=== PATIENT | female | born 1970 | race Caucasian/White ===

== ENCOUNTER → 2017-01-14 | Outpatient (CLI) | payer BC ==
--- NOTE | 2017-01-14 09:32 | KCIC ---
PROCEDURE Diagnostic right mammogram. 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 COMPARISON June 19, 2016. FINDINGS Digital diagnostic right mammogram was performed consisting of routine CC and MLO views of the right breast. Retroareolar right breast demonstrates presence of a biopsy clip adjacent to mammographic mass of interest. Mammographic mass of interest is not changed in size to previous study. No dominant suspicious mass, suspicious microcalcifications, or architectural distortion is identified in the right breast. CAD was utilized. Breast parenchyma is heterogeneously dense, which could reduce sensitivity of mammography (tissue density C). IMPRESSION Post biopsy changes of the right breast. No evidence of malignancy. Recommend return to annual screening mammography. It is noted that patient is due for annual screening mammography in June 2017. BIRADS: 2 - Benign Finding(s) Follow Up: In 12 month(s) The images were reviewed with computer-aided detection. Patient information was entered into a reminder system with a target due date for the next mammogram. Statement of the [employer]: Mammography is the most sensitive method for findings small breast cancers, but it does not detect them all and is not a substitute for careful clinical examination. A negative mammogram does not negate a clinically suspicious finding and should not result in a delay in biopsying a clinically suspicious abnormality. Electronically signed by: Chris Aguayo MD (Jan 14, 2017 09:31:25)
== END | disposition home or self-care (01) ==
LOC: KCIC MAMMO 08:43
PROVIDERS: ATTEND Nurse Practitioner
DX: C50.911 Malignant neoplasm of unspecified site of right female breast (principal)
CPT/HCPCS: G0206; 77065

== ENCOUNTER → 2017-07-28 | Outpatient (CLI) | payer BC ==
--- NOTE | 2017-07-28 15:33 | KCIC ---
DATE: 07/28/2017 EXAM: MAMMO CLARISSA SCREENING BILATERAL HISTORY: Screening COMPARISON: 06/19/2016 This study was interpreted with the benefit of Computerized Aided Detection (CAD). FINDINGS: Breast Density: HETERO The breast parenchyma Is heterogeneiously dense, which could reduce sensitivity of mammography. Breast parenchyma level C. There is a density centrally in the right breast best demonstrated on the cc view similar to the previous venous exam. A biopsy clip is noted at this level. In the periareolar position of the left breast, just above the plane of the nipple there is a well-defined mass. This is best demonstrated on the clarissa images. Targeted ultrasound is suggested. It probably reflects a cyst. IMPRESSION: Well-defined mass in the periareolar position of the left breast. Targeted ultrasound advised. BI-RADS CATEGORY: 0 INCOMPLETE: NEED ADDITIONAL IMAGING EVAULATION AND/OR PRIOR MAMMOGRAMS FOR COMPARISON RECOMMENDED FOLLOW-UP: ADD ADDITIONAL IMAGING PQRS compliance statement: Patient information was entered into a reminder system with a target due date soon for the next mammogram. Mammography is a sensitive method for finding small breast cancers, but it does not detect them all and is not a substitute for careful clinical examination. A negative mammogram does not negate a clinically suspicious finding and should not result in delay in biopsying a clinically suspicious abnormality. "Our facility is accredited by the [employer] Mammography Program."
== END | disposition home or self-care (01) ==
LOC: KCIC MAMMO 14:11
PROVIDERS: ATTEND Nurse Practitioner Family
DX: Z12.31 Encounter for screening mammogram for malignant neoplasm of breast (principal); N63.20 Unspecified lump in the left breast, unspecified quadrant
CPT/HCPCS: 77063; G0202; 77067

== ENCOUNTER → 2017-08-01 | Outpatient (CLI) | payer BC ==
--- NOTE | 2017-08-01 13:55 | RAD ---
LEFT BREAST SONOGRAPHY Clinical indications: Further evaluation of nodule at the 12:00 position left breast seen on screening mammogram dated July 28, 2017. Findings: High-resolution sonography of the 12:00 position of the left breast was performed. In the retroareolar region, a 13 mm simple cyst is seen. This is located 1 cm from the nipple. IMPRESSION: Mammographic nodule corresponds to a simple cyst of the left breast. Recommend routine screening mammography in one year. BI-RADS Category 2 benign finding. The patient information was entered into the data reminder system with a target due date for the next mammogram of July 29, 2018.
== END | disposition home or self-care (01) ==
LOC: KCIC US 13:18
PROVIDERS: ATTEND Nurse Practitioner Family
DX: N63.20 Unspecified lump in the left breast, unspecified quadrant (principal)
CPT/HCPCS: 76641

== ENCOUNTER → 2018-02-18 | Outpatient (CLI) | payer BC | END | disposition home or self-care (01) | LOC: KCIC US 12:48 | DX: N60.12 Diffuse cystic mastopathy of left breast (principal); D48.61 Neoplasm of uncertain behavior of right breast; N63.20 Unspecified lump in the left breast, unspecified quadrant | CPT/HCPCS: 76641 ==

== ENCOUNTER → 2019-03-02 | Outpatient (CLI) | payer BC ==
[~2019-03-02] MED LIST: LISI10TA2 PO; NORE1TAB27 PO
--- NOTE | 2019-03-02 09:50 | RAD ---
CLINICAL HISTORY: Elevated LFTs. Osteophytosis COMPARISON: None available. TECHNIQUE: Ultrasound of the upper abdomen was performed. FINDINGS: The liver measures 17.3 cm in length in the right mid clavicular line. The hepatic margin is smooth and the hepatic echogenicity is normal. There are no focal liver lesions. Flow is identified in the hepatic veins and portal veins with normal waveforms. Diffuse cholelithiasis resulting in shadowing of the gallbladder. No obvious pericholecystic fluid is seen. The common bile duct measures 0.2 cm. The spleen is normal in size measuring 7.6 cm in length. The head and body of the pancreas are unremarkable. The tail is obscured by intestinal gas.. The right kidney measures 13.9 cm in bipolar length. No focal renal lesion or hydronephrosis. Normal renal cortical echotexture. The left kidney measures 12.8 cm in bipolar length. No focal renal lesion or hydronephrosis. Normal renal cortical echotexture. Visualized portions of the abdominal aorta and inferior vena cava are unremarkable. There is no free fluid in the upper abdomen. IMPRESSION: 1. Marked cholelithiasis resulting in shadowing of the entire gallbladder. Within these limitations, no obvious pericholecystic fluid or wall thickening is seen. Electronically signed by: Jaden Cooper MD (03/02/2019 9:02 AM) [id number]
== END | disposition home or self-care (01) ==
LOC: US 06:53
PROVIDERS: ATTEND Internal Medicine Hematology & Oncology
DX: K80.20 Calculus of gallbladder without cholecystitis without obstruction (principal)
CPT/HCPCS: 76700

== ENCOUNTER → 2019-11-22 | Outpatient (CLI) | payer BC ==
[2019-03-05 11:45] VITALS: BP 123/74
--- NOTE | 2019-11-22 16:54 | KCIC ---
Bilateral digital screening mammograms with 3-D tomosynthesis: Reason for examination: Routine screening. Comparison is made to previous studies dated back to 05/06/2014. Bilateral mammograms in CC and oblique projections were obtained with 2-D imaging and 3-D tomosynthesis imaging on a Siemens Inspiration unit and reviewed on the workstation. Interpretation was made with the benefit of CAD. The skin and nipples show no abnormalities. No abnormal axillary lymph nodes are seen. The breast parenchyma is heterogeneously dense. (Breast density: Category C.) There are nodular densities posterior laterally at the 9:30 B and 9:00 C positions of the right breast. There are also however small nodular densities located centrally in the 6:00 B position of the left breast and laterally at the 2:30 B position of the left breast. Further evaluation with ultrasound is recommended. There are no other new dominant masses, suspicious calcifications or architectural distortion. Impression: Small nodular densities in the right breast at the 9:00 C and 9:30 B positions and in the left breast at the 2:30 B and 6:00 B positions. Recommend further evaluation with ultrasound. Your patient's mammogram demonstrates that she has dense breast tissue (breast density category C or D), which could hide abnormalities, and if she has other risk factors for breast cancer that have been identified, she might benefit from supplemental screening tests that may be suggested by you as her ordering physician. Dense breast tissue, in and of itself, is a relatively common condition. Therefore, this information is not provided to cause undue concern, but rather to raise your awareness and to promote discussion with your patient regarding the presence of other risk factors, in addition to dense breast tissue. Your patient's mammography results will be sent to her. BI-RAD Category 0: Incomplete. Needs additional imaging evaluation. "Our facility is accredited by the [employer] Mammography Program." This patient's information has been entered into a reminder system for the patient to be notified with the results of her examination and a target date for the next mammogram. Electronically signed by: Iza Mcginnis MD (11/22/2019 4:51 PM) [id number]
== END | disposition home or self-care (01) ==
LOC: KCIC MAMMO 14:43
DX: Z12.31 Encounter for screening mammogram for malignant neoplasm of breast (principal); N64.89 Other specified disorders of breast; N63.11 Unspecified lump in the right breast, upper outer quadrant; N63.21 Unspecified lump in the left breast, upper outer quadrant
CPT/HCPCS: 77063; 77067

== ENCOUNTER → 2019-12-20 | Outpatient (CLI) | payer BC ==
[2019-03-05 11:45] VITALS: BP 123/74
--- NOTE | 2019-12-20 16:28 | KCIC ---
Bilateral breast ultrasound: Reason for examination: Nodular densities on screening mammogram. Comparison is made to mammographic exam dated 11/22/2019 and previous ultrasound examination dated 02/18/2018. Ultrasound examination was performed bilaterally of the breasts and axilla. In the right breast at the 9:00 position 4 cm from the nipple, there is a 5.8 mm hypoechoic circumscribed lesion in parallel orientation which probably represents a complicated cyst. In the 9:30 position 2.5 cm from the nipple, there is a 3.7 mm hypoechoic circumscribed lesion consistent with a complicated cyst. No abnormal appearing lymph nodes are seen in the axilla. In the left breast at the 2:30 position 4 cm from the nipple, there is a 5.7 mm hypoechoic fibrocystic type lesion. In the 2:30 position 3 cm from the nipple, there is a 2.7 mm hypoechoic fibrocystic lesion. At the 6:00 position 2 cm from the nipple there is a 4.6 mm hypoechoic fibrocystic lesion. In the 7:00 position 3.5 cm from the nipple, there is a small 3.1 mm hypoechoic fibrocystic lesion. No suspicious appearing lymph nodes are seen in the axilla. IMPRESSION: Small benign-appearing cystic and fibrocystic lesions which are all subcentimeter in size. No suspicious lesions are seen. Recommend 6 month follow-up with ultrasound. BI-RADS Category 3: Probably Benign. "Our facility is accredited by the [employer] Mammography Program." This patient's information has been entered into a reminder system for the patient to be notified with the results of her examination and a target date for the next mammogram. Electronically signed by: Iza Mcginnis MD (12/20/2019 4:25 PM) [id number]
== END ==
LOC: KCIC US 12:43
DX: N64.89 Other specified disorders of breast (principal)
CPT/HCPCS: 76641